=== PATIENT | female | born 2000 | race Caucasian/White ===

== ENCOUNTER 2024-12-28 18:42 | Emergency (ER) | payer SELFPAY ==
[~2024-12-28] VITALS: Ht 149.9 cm; Wt 64.0 kg
[2024-12-28 18:56] VITALS: O2SAT 98
[2024-12-28] MEDS: IBUPROFEN 600MG TABLET PO ONE (23:30)
[2024-12-29] MEDS ORDERED: AMOX1TAB16 MT (00:45)
[2024-12-29] MEDS ORDERED: BO1 TP (00:45)
[2024-12-29] MEDS ORDERED: IBUP-2029 MT (00:49)
[2024-12-29] MEDS: BACITRACIN ZINC OINT UDPKT TOP ONE (01:21)
[2024-12-29] MEDS: TETANUS AND DIPHTHERIA TOX/PF 0.5ML SYR (ADULT) IM ONE (01:21)
[2024-12-29] MEDS: LIDOCAINE HCL/PF 1% 10 MG/ML 5ML VIAL INFIL ONE (01:22)
[2024-12-29 01:34] VITALS: BP 125/73; PULSE 70; RESP 18; TEMP 36.7; O2SAT 100
== END 2024-12-29 01:37 | disposition home or self-care (01) ==
LOC: ER 18:42
DX: S61.212A Laceration without foreign body of right middle finger without damage to nail, initial encounter (principal); J45.909 Unspecified asthma, uncomplicated; W54.0XXA Bitten by dog, initial encounter; Y93.89 Activity, other specified; Y92.89 Other specified places as the place of occurrence of the external cause; Y99.8 Other external cause status
CPT/HCPCS: 73130; 12001; 99283; 90714; 90471; Z7610